=== PATIENT | female | born 1955 | race Caucasian/White ===

== ENCOUNTER → 2017-12-27 | Outpatient (CLI) | payer OTHER ==
[2017-12-27 13:39] LABS: Protein, Urine Quantitative <5.0 mg/dL (0.0-11.9)
== END | disposition home or self-care (01) ==
LOC: LAB EV 07:45
PROVIDERS: Physician Assistant Medical
DX: R35.1 Nocturia (principal)
CPT/HCPCS: 81050; 84156

== ENCOUNTER → 2018-04-16 | Outpatient (CLI) | payer OTHER ==
[2018-04-18 15:08] LABS: HPV 16 Negative (Negative); HPV 18 Negative (Negative); HPV OTHER HR TYPES Negative (Negative)
== END | disposition home or self-care (01) ==
LOC: LAB SHORT 15:30 → LAB 15:30
PROVIDERS: Internal Medicine
DX: Z01.419 Encounter for gynecological examination (general) (routine) without abnormal findings (principal)
CPT/HCPCS: 87624; G0145

== ENCOUNTER 2021-07-01 14:19 | Day surgery (SDC) | payer MEDICARE, OTHER | END 2021-07-01 23:35 | disposition home or self-care (01) | LOC: US 14:19 | DX: R22.32 Localized swelling, mass and lump, left upper limb (principal) | CPT/HCPCS: 20206; 76942; 88305 ==

== ENCOUNTER → 2022-10-10 | Outpatient (CLI) | payer MEDICARE, OTHER ==
[~2022-10-10] MED LIST: ACYC800; IBUP100S; TRAZ50
== END | disposition home or self-care (01) ==
LOC: LAB 10:10 → LAB SHORT 10:10
DX: Z13.29 Encounter for screening for other suspected endocrine disorder (principal); E04.1 Nontoxic single thyroid nodule
CPT/HCPCS: 84443